=== PATIENT | female | born 1940 | race Caucasian/White ===

== ENCOUNTER → 2017-01-17 | Outpatient (CLI) | payer MEDICARE ==
--- NOTE | 2017-01-17 14:57 | MM ---
Reason for exam: additional evaluation requested from prior study. Last mammogram was performed 1 year and 2 months ago. History: Patient is postmenopausal, has history of colon cancer at age 62, and has history of breast cancer at age 60. Family history of breast cancer in 2 maternal aunts and breast cancer in sister. Cancelled Right US Needle Biopsy of the right breast, November 23, 2010. Benign excisional biopsy of the left breast, March 17, 2002. Malignant excisional biopsy of the left breast, February 04, 2001. Malignant stereotactic core biopsy of the left breast, January 21, 2001. Core biopsy of the left breast. Lumpectomy of the left breast. Chemotherapy. Radiation therapy of the left breast. Took tamoxifen for 6 years 2 months beginning at age 60. Physical Findings: Nurse did not find any significant physical abnormalities on exam. MG 3D Diag Mammo W/Cad PETROS Bilateral CC and MLO view(s) were taken. Prior study comparison: November 29, 2015, bilateral MG 3d diag mammo w/cad PETROS. November 12, 2014, bilateral MG diagnostic mammo w CAD PETROS. There are scattered fibroglandular densities. Asymmetric breast tissue greater in the right breast. Post biopsy changes on the left breast. No significant new findings when compared with previous films. These results were verbally communicated with the patient and result sheet given to the patient on 01/17/17. ASSESSMENT: Benign, BI-RAD 2 RECOMMENDATION: Routine screening mammogram of both breasts in 1 year.
== END | disposition home or self-care (01) ==
LOC: RADMAMWWP 13:44
PROVIDERS: ATTEND Surgery
DX: Z08 Encounter for follow-up examination after completed treatment for malignant neoplasm (principal); Z85.3 Personal history of malignant neoplasm of breast
CPT/HCPCS: G0204; G0279

== ENCOUNTER → 2018-01-21 | Outpatient (CLI) | payer MEDICARE ==
--- NOTE | 2018-01-21 15:08 | MM ---
Reason for exam: additional evaluation requested from prior study. Last mammogram was performed 1 year ago. History: Patient is postmenopausal, has history of colon cancer at age 62, and has history of breast cancer at age 60. Family history of breast cancer in 2 maternal aunts and breast cancer in sister. Cancelled Right US Needle Biopsy of the right breast, November 23, 2010. Benign excisional biopsy of the left breast, March 17, 2002. Malignant excisional biopsy of the left breast, February 04, 2001. Malignant stereotactic core biopsy of the left breast, January 21, 2001. Core biopsy of the left breast. Lumpectomy of the left breast. Chemotherapy. Radiation therapy of the left breast. Took tamoxifen for 6 years 2 months beginning at age 60. Physical Findings: Nurse did not find any significant physical abnormalities on exam. MG 3D Diag Mammo W/Cad PETROS Bilateral CC and MLO view(s) were taken. Prior study comparison: January 17, 2017, bilateral MG 3d diag mammo w/cad PETROS. November 29, 2015, bilateral MG 3d diag mammo w/cad PETROS. The breast tissue is heterogeneously dense. This may lower the sensitivity of mammography. Stable benign calcifications. Stable post lumpectomy and radiation therapy changes. These results were verbally communicated with the patient and result sheet given to the patient on 01/21/18. ASSESSMENT: Benign, BI-RAD 2 RECOMMENDATION: Follow-up diagnostic mammogram of both breasts in 1 year.
== END | disposition home or self-care (01) ==
LOC: RADMAMWWP 14:09
PROVIDERS: ATTEND Family Medicine
DX: Z08 Encounter for follow-up examination after completed treatment for malignant neoplasm (principal); Z85.3 Personal history of malignant neoplasm of breast
CPT/HCPCS: 77066; G0279; 77062

== ENCOUNTER → 2019-02-17 | Outpatient (CLI) | payer MEDICARE ==
--- NOTE | 2019-02-18 10:48 | MM ---
Reason for exam: additional evaluation requested from prior study. Last mammogram was performed 1 year and 1 month ago. History: Patient is postmenopausal, has history of colon cancer at age 62, and has history of breast cancer at age 60. Family history of breast cancer in 2 maternal aunts and breast cancer in sister. Cancelled Right US Needle Biopsy of the right breast, November 23, 2010. Benign excisional biopsy of the left breast, March 17, 2002. Malignant excisional biopsy of the left breast, February 04, 2001. Malignant stereotactic core biopsy of the left breast, January 21, 2001. Core biopsy of the left breast. Lumpectomy of the left breast. Chemotherapy. Radiation therapy of the left breast. Took progesterone beginning at age 46. Took tamoxifen for 6 years 2 months beginning at age 60. Physical Findings: Nurse did not find any significant physical abnormalities on exam. MG 3D Diag Mammo W/Cad PETROS Bilateral CC and MLO view(s) were taken. Prior study comparison: January 21, 2018, bilateral MG 3d diag mammo w/cad PETROS. January 17, 2017, bilateral MG 3d diag mammo w/cad PETROS. The breast tissue is heterogeneously dense. This may lower the sensitivity of mammography. Benign appearing calcifications in the right breast. Chronic right nipple retraction on the right and post therapy change on the left. Limited exam. Patient could not tolerate positioning for left MLO or left CC, limited as above. These results were verbally communicated with the patient and result sheet given to the patient on 02/17/19. ASSESSMENT: Benign, BI-RAD 2 RECOMMENDATION: Follow-up diagnostic mammogram of both breasts in 1 year.
== END | disposition home or self-care (01) ==
LOC: RADMAMWWP 15:16
PROVIDERS: ATTEND Family Medicine
DX: Z08 Encounter for follow-up examination after completed treatment for malignant neoplasm (principal); Z85.3 Personal history of malignant neoplasm of breast
CPT/HCPCS: 77066; G0279; 77062

== ENCOUNTER → 2021-02-14 | Outpatient (CLI) | payer MEDICARE ==
--- NOTE | 2021-02-15 08:38 | USB ---
Reason for exam: history of breast cancer, conservation therapy. History: Patient is postmenopausal, has history of colon cancer at age 62, and has history of breast cancer at age 60. Family history of breast cancer in 2 maternal aunts and breast cancer in sister. Cancelled Right US Needle Biopsy of the right breast, November 23, 2010. Benign excisional biopsy of the left breast, March 17, 2002. Malignant excisional biopsy of the left breast, February 04, 2001. Malignant stereotactic core biopsy of the left breast, January 21, 2001. Core biopsy of the left breast. Lumpectomy of the left breast. Chemotherapy. Radiation therapy of the left breast. Took progesterone beginning at age 46. Took tamoxifen for 6 years 2 months beginning at age 60. Physical Findings: Nurse did not find any significant physical abnormalities on exam. US Breast BILAT Right complete breast ultrasound includes all four quadrants, the retroareolar region and axilla. Finding demonstrates a duct at 8 o'clock, a 0.7 x 0.4 x 0.4cm lymph node at 8 o'clock and a 0.8 x 0.8 x 0.6cm lymph node at the axilla. Left complete breast ultrasound includes all four quadrants, the retroareolar region and axilla. Finding demonstrates a 1.4 x 1.2 x 0.7cm scar at 1 o'clock biopsy site, a 0.3 x 0.3 x 0.2cm oval, cystic lesion at 11 o'clock and a slightly enlarged hypoechoic area at 1 o'clock, possibly ductal ectasia, 6 month follow up recommended. These results were verbally communicated with the patient and result sheet given to the patient on 02/14/21. ASSESSMENT: Probably benign, BI-RAD 3 RECOMMENDATION: Ultrasound of the left breast in 6 months. (1 o'clock)
== END | disposition home or self-care (01) ==
LOC: RADUSWWP 14:03
PROVIDERS: ATTEND Internal Medicine Hematology & Oncology
DX: N64.89 Other specified disorders of breast (principal); Z85.3 Personal history of malignant neoplasm of breast; Z80.3 Family history of malignant neoplasm of breast; Z85.038 Personal history of other malignant neoplasm of large intestine

== ENCOUNTER → 2022-05-22 | Outpatient (CLI) | payer MEDICARE ==
--- NOTE | 2022-05-22 15:35 | USB ---
Reason for Exam: Follow-up at short interval from prior study. Patient History: Menarche at age 14. First Full-Term at age 24. Left ovary removed at age 46. Right ovary removed at age 46. Hysterectomy at age 46. Postmenopausal. Breast cancer, age 60. Colorectal cancer, age 62. Progesterone, from age 46 until age 60. Tamoxifen for 6 years, 2 months, from age 60 until age 66. Lumpectomy on the Left side. Core Biopsy on the Left side. 02/04/2001, Malignant Excisional Biopsy on the left side. 03/17/2002, Benign Excisional Biopsy on the left side. 01/21/2001, Malignant Stereotactic Core Biopsy on the left side. Radiation Therapy, left. Chemotherapy. 11/23/2010, Cancelled Right US Needle Biopsy on the right side. Maternal aunt had breast cancer. Maternal aunt had breast cancer. Sister had breast cancer. Technique: Method: Whole Breast Handheld. Prior Study Comparison: 01/17/2017 Bilateral Diagnostic Mammogram, [facility]. 01/21/2018 Bilateral Diagnostic Mammogram, [facility]. 02/17/2019 Bilateral Diagnostic Mammogram, [facility]. Findings: The whole breast of both breasts, the axilla of both breasts and the retroareolar of both breasts were scanned. A complete US of all four quadrants of the breast and retro-areolar region were reviewed. At 1:00 position in the left breast there is persistent elongated hypoechoic area with shadowing measuring 1.6 x 0.9 cm without vascularity thought to reflect posttreatment scar not significantly changed from prior study. Adjacent to this is 5 to 6 mm irregular hypoechoic 2 anechoic avascular area with increased through transmission slightly larger in size favoring benign thin-walled cyst. Overall Assessment: Probably benign, BI-RAD 3 Management: Diagnostic Breast Ultrasound of the left breast in 6 months. Screening Mammogram of both breasts in 1 day. Patient overdue for annual bilateral breast mammogram. Results were given to the patient verbally at the time of exam. Electronically signed and approved by: Erik Calvillo M.D.
== END | disposition home or self-care (01) ==
LOC: RADUSWWP 14:31
PROVIDERS: ATTEND Internal Medicine Hematology & Oncology
DX: N64.52 Nipple discharge (principal); Z78.0 Asymptomatic menopausal state; Z80.3 Family history of malignant neoplasm of breast